=== PATIENT | male | born 1985 | race Caucasian/White ===

== ENCOUNTER 2016-11-29 10:24 | Emergency (ER) | payer SELFPAY ==
[2016-11-29 10:31] VITALS: BP 134/87
[2016-11-29] MEDS ORDERED: BUPIVACAINE HCL 0.5 % INJ/PF 30 ML SDV INJ ONE (10:52)
[2016-11-29] MEDS ORDERED: PENICILLIN V POTASSIUM 500 MG TABLET PO ONE (10:52)
--- NOTE | 2016-11-29 10:54 | ER Document Report ---
ED Oral Problem - General Chief Complaint: Toothache Stated Complaint: TOOTH PAIN Time Seen by Provider: 11/29/16 10:41 Notes: Patient is a 31-year-old male presents emergency department complaining of left toothache. Patient states that he has had a fractured tooth on the bottom left side of his jaw for years and is scheduled to see a dentist next week regarding this tooth. Patient admits to pain starting on Thursday as a constant dull throb that has had swelling increased gradually since Thursday. Patient denies any difficulty breathing, difficulty swallowing, difficulty talking. Tolerating p.o. without any difficulty. Denies any fevers or chills. Patient has been taking Motrin at home for pain. Otherwise healthy male TRAVEL OUTSIDE OF THE [place] IN LAST 30 DAYS: No - Related Data Allergies/Adverse Reactions: No Known Allergies Allergy (Unverified 11/29/16 10:29) Past Medical History - Social History Smoking Status: Current Every Day Smoker Chew tobacco use (# tins/day): No Frequency of alcohol use: Occasional Drug Abuse: None Family History: Reviewed & Not Pertinent Renal/ Medical History: Denies: Hx Peritoneal Dialysis Past Surgical History: Reports: Hx Appendectomy - Immunizations Hx Diphtheria, Pertussis, Tetanus Vaccination: Yes Review of Systems - Review of Systems Constitutional: No symptoms reported EENT: See HPI Cardiovascular: No symptoms reported Respiratory: No symptoms reported Gastrointestinal: No symptoms reported -: Yes All other systems reviewed and negative Physical Exam - Vital signs Vitals: Temp Pulse Resp BP Pulse Ox 98.1 F 84 20 134/87 H 98 11/29/16 10:29 11/29/16 10:29 11/29/16 10:29 11/29/16 10:29 11/29/16 10:29 - General General appearance: Appears well, Alert In distress: None - HEENT Mouth/Lips: Caries, Dental fracture - tooth #18, Other - gingival swelling lateral to the tooth, nontender, soft tissue swelling fo the heek that is nontender Mucous membranes: Normal Pharynx: Normal. No: Blood in hypopharynx, Peritonsillar abscess, Retropharyngeal abscess, Potential airway comprom. Neck: Normal, Supple, Other - no evidence of ludwigs angina - Respiratory Respiratory status: No respiratory distress Chest status: Nontender Breath sounds: Normal Chest palpation: Normal - Cardiovascular Rhythm: Regular Heart sounds: Normal auscultation, S1 appreciated, S2 appreciated Gallop: None auscultated - Skin Skin Temperature: Warm Skin Moisture: Dry Skin Color: Normal Skin Turgor: Elastic Course - Re-evaluation Re-evalutation: 11/29/16 11:24 Patient is a 31-year-old male who is hemodynamically stable, no acute distress and afebrile. No evidence of tachycardia or concerns for acute systemic infection presentation is most consistent with likely an infected tooth. Airway is patent. Vitals within normal limits. Patient is able swallow without any difficulty. There is no significant facial swelling. Patient will be started on antibiotics. I've instructed to follow-up with dentistry as earliest ability for definitive management. Return precautions and follow-up recommendations have been discussed at length. - Vital Signs Vital signs: Temp Pulse Resp BP Pulse Ox 98.1 F 84 20 134/87 H 98 11/29/16 10:29 11/29/16 10:29 11/29/16 10:29 11/29/16 10:29 11/29/16 10:29 Procedures - Additional Procedures dental block Additional Procedures: Other - Patient received a 5 cc Sensorcaine in for alveolar dental block of the left lower jaw. Patient tolerated the procedure well, no complications and patient is pain-free. Discharge - Discharge Clinical Impression: Toothache Condition: Good Disposition: HOME, SELF-CARE Instructions: Penicillin V K ([facility]), Toothache ([facility]) Additional Instructions: You have been seen for dental pain. It is very important that you follow-up with a dentist for definitive care. Please return if you develop fever greater than 101, swelling in your face, vomiting, difficulty breathing or swallowing, or any other symptoms that are concerning to you. For pain you should take ibuprofen 600 mg every 6 hours as needed. Prescriptions: Penicillin V Potassium [Penicillin Vk 500 mg Tablet] 500 mg PO QID 7 Days tablet
== END 2016-11-29 11:30 | disposition home or self-care (01) ==
LOC: ER 10:24
DX: K08.89 Other specified disorders of teeth and supporting structures (principal); F17.200 Nicotine dependence, unspecified, uncomplicated
CPT/HCPCS: 99282